=== PATIENT | female | born 1965 | race Caucasian/White ===

== ENCOUNTER 2017-01-23 20:35 | Emergency (ER) | payer MEDICARE, MEDICAID ==
[~2017-01-23] VITALS: Ht 170.2 cm; Wt 67.0 kg
[~2017-01-23 20:35] MED LIST: ARIP30TA PO; LORA2TAB99 PO; ZOLP10TA PO
[2017-01-23 20:37] VITALS: BP 124/84
== END 2017-01-23 21:26 | disposition home or self-care (01) ==
LOC: ED 21:01
DX: S06.9X1A Unspecified intracranial injury with loss of consciousness of 30 minutes or less, initial encounter (principal); Z88.8 Allergy status to other drugs, medicaments and biological substances; W19.XXXA Unspecified fall, initial encounter; Y93.89 Activity, other specified; Y99.8 Other external cause status; Y92.830 Public park as the place of occurrence of the external cause
CPT/HCPCS: 99282

== ENCOUNTER 2018-06-09 18:27 | Inpatient (IN) | payer MEDICAID, MEDICARE ==
[~2018-06-09] VITALS: Ht 170.2 cm; Wt 66.2 kg
[~2018-06-09 18:27] MED LIST changes: -ARIP30TA PO; +ARIP30TA4 PO
[2018-06-09] MEDS ORDERED: ZIPRASIDONE 20 MG INJ IM ONE ×2 (18:29→19:00)
[2018-06-09 18:50] LABS: MEAN CORPUSCULAR HEMOGLOBIN 32.2 pg (27.0-34.8); MEAN CORPUSCULAR HGB CONC 34.1 g/dL (32.4-35.8); MEAN CORPUSCULAR VOLUME 94.3 fL (80-100); MEAN PLATELET VOLUME 8.2 fL (7.4-10.4); PLATELET COUNT 435 x10^3/uL (130-400); RED BLOOD COUNT 4.03 x10^6/uL (3.82-5.3); RED CELL DISTRIBUTION WIDTH 12.6 % (9.6-15.2)
[2018-06-09 18:59] LABS: ALANINE AMINOTRANSFERASE 29 U/L (12-78); ANION GAP 12 mmol/L (5-15); CHLORIDE 109 mmol/L (98-107); CREATININE 0.96 mg/dL (0.55-1.02); SALICYLATE LEVEL 4.4 mg/dL (2.8-20.0)
[2018-06-09 19:04] LABS: ALKALINE PHOSPHATASE 77 U/L (45-117); BILIRUBIN,TOTAL 0.8 mg/dL (0.2-1.0); TOTAL PROTEIN 7.9 g/dL (6.4-8.2)
[2018-06-09 19:09] LABS: BASOPHILS # (AUTO) 0.05 x10^3/uL (0-0.1); BASOPHILS % (AUTO) 0 % (0-1); EOSINOPHILS # (AUTO) 0.04 x10^3/uL (0-0.4); EOSINOPHILS % (AUTO) 0 % (1-7); LYMPHOCYTES # (AUTO) 2.33 x10^3/uL (1-3.4); LYMPHOCYTES % (AUTO) 12 % (22-44); MD SCAN; MONOCYTES # (AUTO) 1.65 x10^3/uL (0.2-0.8); MONOCYTES % (AUTO) 9 % (2-9); NEUTROPHILS % (AUTO) 79 % (42-75)
[2018-06-09 19:10] LABS: ACETAMINOPHEN < 2 mcg/mL (10-30)
[2018-06-09] MEDS ORDERED: SODIUM CHLORIDE 0.9% 1,000ML IVBOLUS ONE (19:30)
[2018-06-09] MEDS ORDERED: SODIUM CHLORIDE FLUSH 10ML SYR IVF ONE (19:30)
[2018-06-09] MEDS ORDERED: SODIUM CHLORIDE 0.9%, 500ML IVBOLUS ONE (20:00)
[2018-06-09 20:13] LABS: AMPHETAMINE SCREEN, URINE Positive (Negative); BARBITURATE SCREEN, URINE Negative (Negative); BENZODIAZEPINE SCREEN, URINE Negative (Negative); CANNABINOID SCREEN, URINE Positive (Negative); COCAINE SCREEN, URINE Negative (Negative); METHADONE SCREEN, URINE Negative (Negative); OPIATE SCREEN, URINE Negative (Negative)
[2018-06-09 20:20] LABS: MICROSCOPIC INDICATED
[2018-06-09 20:23] LABS: CULTURE INDICATED? YES
[2018-06-09] MEDS ORDERED: ALBUTEROL SULFATE 2.5 MG/3 ML NPPB ONE (21:30)
[2018-06-09] MEDS ORDERED: CEFTRIAXONE PMX 1GM/50ML 50 ML IV ONE (21:30)
[2018-06-09] MEDS ORDERED: CEFTRIAXONE PMX 1GM/50ML 50 ML ONE (21:35)
[2018-06-09] MEDS ORDERED: ALBUTEROL/IPRATROPIUM 2.5MG/0.5MG, 3 ML ONE (21:38)
[2018-06-09] MEDS ORDERED: BISACODYL 10 MG SUPP PR PRN (22:30)
[2018-06-09] MEDS ORDERED: ONDANSETRON 2MG/ML, 2ML IVPush PRN (22:30)
[2018-06-09] MEDS: HEPARIN 5,000 UNITS/ML, 1ML SQ SCH (22:30)
[2018-06-09 23:57] VITALS: BP 102/68
[2018-06-10] MEDS: NS + 20MEQ KCL 1,000 ML IV SCH ×2 (00:12→14:53)
[2018-06-10] MEDS ORDERED: LORazepam 1MG TABLET PO ONE (02:30)
[2018-06-10] MEDS ORDERED: HALOPERIDOL 5 MG/ML ONE (02:36)
[2018-06-10] MEDS: HALOPERIDOL 5 MG/ML IM PRN (02:44)
[2018-06-10 05:16] LABS: BASOPHILS # (AUTO) 0.06 x10^3/uL (0-0.1); BASOPHILS % (AUTO) 0 % (0-1); EOSINOPHILS # (AUTO) 0.16 x10^3/uL (0-0.4); EOSINOPHILS % (AUTO) 1 % (1-7); LYMPHOCYTES # (AUTO) 2.67 x10^3/uL (1-3.4); LYMPHOCYTES % (AUTO) 19 % (22-44); MD NO; MEAN CORPUSCULAR HEMOGLOBIN 32.3 pg (27.0-34.8); MEAN CORPUSCULAR HGB CONC 34.3 g/dL (32.4-35.8); MEAN CORPUSCULAR VOLUME 94.2 fL (80-100); MEAN PLATELET VOLUME 8.2 fL (7.4-10.4); MONOCYTES # (AUTO) 1.33 x10^3/uL (0.2-0.8); MONOCYTES % (AUTO) 9 % (2-9); NEUTROPHILS # (AUTO) 9.97 x10^3/uL (1.8-6.8); NEUTROPHILS % (AUTO) 70 % (42-75); PLATELET COUNT 370 x10^3/uL (130-400); RED CELL DISTRIBUTION WIDTH 12.4 % (9.6-15.2)
[2018-06-10 05:17] LABS: ALANINE AMINOTRANSFERASE 30 U/L (12-78); ALBUMIN 3.2 g/dL (3.4-5.0); ANION GAP 10 mmol/L (5-15); CALCIUM 8.5 mg/dL (8.5-10.1); CHLORIDE 111 mmol/L (98-107); CREATININE 0.75 mg/dL (0.55-1.02)
[2018-06-10 05:19] LABS: ALKALINE PHOSPHATASE 67 U/L (45-117); BILIRUBIN,TOTAL 0.6 mg/dL (0.2-1.0); TOTAL PROTEIN 6.5 g/dL (6.4-8.2)
[2018-06-10] MEDS: HEPARIN 5,000 UNITS/ML, 1ML SQ SCH ×3 (06:19→21:01)
[2018-06-10 06:27] VITALS: BP 103/64
[2018-06-10] MEDS ORDERED: ZIPRASIDONE 20 MG INJ IM PRN (08:00)
[2018-06-10 08:48] VITALS: BP 108/72
[2018-06-10] MEDS: SENNA/DOCUSATE TABLET PO SCH (09:00)
[2018-06-10] MEDS ORDERED: POTASSIUM CHLORIDE 20 MEQ TAB.ER.PRT PO ONE (10:30)
[2018-06-10 13:31] VITALS: BP 108/70
[2018-06-10 19:34] VITALS: BP 97/62
[2018-06-10] MEDS ORDERED: CEFTRIAXONE 1,000 MG in SODIUM CHLORIDE 0.9% 50 ML IV SCH (22:00)
[2018-06-11] MEDS: NS + 20MEQ KCL 1,000 ML IV SCH ×2 (01:49→10:12)
[2018-06-11 02:14] VITALS: BP 101/68
[2018-06-11] MEDS: ZIPRASIDONE 20 MG INJ IM PRN ×3 (04:12→23:18)
[2018-06-11] MEDS: HEPARIN 5,000 UNITS/ML, 1ML SQ SCH ×3 (06:30→20:12)
[2018-06-11 06:57] VITALS: BP 108/70
[2018-06-11] MEDS: SENNA/DOCUSATE TABLET PO SCH (08:41)
[2018-06-11 09:05] LABS: MEAN CORPUSCULAR HEMOGLOBIN 31.6 pg (27.0-34.8); MEAN CORPUSCULAR HGB CONC 33.8 g/dL (32.4-35.8); MEAN CORPUSCULAR VOLUME 93.6 fL (80-100); MEAN PLATELET VOLUME 8.2 fL (7.4-10.4); PLATELET COUNT 377 x10^3/uL (130-400); RED BLOOD COUNT 3.56 x10^6/uL (3.82-5.3); RED CELL DISTRIBUTION WIDTH 12.3 % (9.6-15.2)
[2018-06-11 09:13] LABS: ALBUMIN 3.3 g/dL (3.4-5.0); ANION GAP 5 mmol/L (5-15); CALCIUM 8.3 mg/dL (8.5-10.1); CHLORIDE 114 mmol/L (98-107); CREATININE 0.62 mg/dL (0.55-1.02)
[2018-06-11 09:46] LABS: BASOPHILS # (AUTO) 0.03 x10^3/uL (0-0.1); BASOPHILS % (AUTO) 0 % (0-1); EOSINOPHILS % (AUTO) 1 % (1-7); LYMPHOCYTES # (AUTO) 1.98 x10^3/uL (1-3.4); LYMPHOCYTES % (AUTO) 23 % (22-44); MD SCAN; MONOCYTES % (AUTO) 8 % (2-9); NEUTROPHILS # (AUTO) 5.84 x10^3/uL (1.8-6.8); NEUTROPHILS % (AUTO) 68 % (42-75)
[2018-06-11 13:04] VITALS: BP 107/70
[2018-06-11 20:00] VITALS: BP 129/80
[2018-06-11] MEDS: DIPHENHYDRAMINE 50 MG CAPSULE PO PRN (20:12)
[2018-06-11] MEDS: ACETAMINOPHEN 325 MG TABLET PO PRN (20:25)
[2018-06-12] MEDS: ACETAMINOPHEN 325 MG TABLET PO PRN ×3 (04:21→20:47)
[2018-06-12] MEDS: HEPARIN 5,000 UNITS/ML, 1ML SQ SCH ×3 (04:22→22:29)
[2018-06-12 04:26] VITALS: BP 129/83
[2018-06-12 08:00] VITALS: BP 109/77
[2018-06-12] MEDS: SENNA/DOCUSATE TABLET PO SCH (09:13)
[2018-06-12 12:30] VITALS: BP 131/77
[2018-06-12] MEDS: ZIPRASIDONE 20 MG INJ IM PRN ×2 (13:57→22:29)
[2018-06-12 18:44] VITALS: BP 115/79
[2018-06-13 02:19] VITALS: BP 118/77
[2018-06-13] MEDS: ACETAMINOPHEN 325 MG TABLET PO PRN ×3 (03:20→19:53)
[2018-06-13] MEDS: DIPHENHYDRAMINE 50 MG CAPSULE PO PRN ×2 (03:20→19:53)
[2018-06-13] MEDS: HEPARIN 5,000 UNITS/ML, 1ML SQ SCH ×3 (06:23→21:14)
[2018-06-13 06:43] VITALS: BP 125/82
[2018-06-13] MEDS: SENNA/DOCUSATE TABLET PO SCH (08:30)
[2018-06-13] MEDS: ZIPRASIDONE 20 MG INJ IM PRN ×2 (09:03→21:13)
[2018-06-13 12:43] VITALS: BP 120/86
[2018-06-13] MEDS ORDERED: POLYETHYLENE GLYCOL 17 GM PACKET PO PRN (19:00)
[2018-06-13] MEDS ORDERED: BISACODYL 10 MG SUPP PR PRN (19:00)
[2018-06-13] MEDS ORDERED: DOCUSATE 100 MG CAPSULE PO PRN (19:00)
[2018-06-13] MEDS ORDERED: ACETAMINOPHEN 325 MG TABLET PO PRN (19:00)
[2018-06-13 19:12] VITALS: BP 128/82
[2018-06-14 00:47] VITALS: BP 127/85
[2018-06-14] MEDS: ACETAMINOPHEN 325 MG TABLET PO PRN ×4 (02:20→22:47)
[2018-06-14] MEDS: HEPARIN 5,000 UNITS/ML, 1ML SQ SCH ×3 (05:17→20:38)
[2018-06-14 06:44] VITALS: BP 134/87
[2018-06-14] MEDS ORDERED: HEMORRHOIDAL SUPP.RECT PR PRN (08:30)
[2018-06-14] MEDS: SENNA/DOCUSATE TABLET PO SCH ×2 (09:00)
[2018-06-14] MEDS: ZIPRASIDONE 20 MG INJ IM PRN (12:14)
[2018-06-14 13:42] VITALS: BP 116/77
[2018-06-14] MEDS: DIPHENHYDRAMINE 50 MG CAPSULE PO PRN (16:36)
[2018-06-14 19:55] VITALS: BP 134/84
[2018-06-15 02:44] VITALS: BP 127/86
[2018-06-15] MEDS: ACETAMINOPHEN 325 MG TABLET PO PRN ×3 (03:18→19:33)
[2018-06-15] MEDS: HEPARIN 5,000 UNITS/ML, 1ML SQ SCH ×3 (04:39→21:08)
[2018-06-15] MEDS: ZIPRASIDONE 20 MG INJ IM PRN ×2 (06:18→21:08)
[2018-06-15 07:07] VITALS: BP 129/86
[2018-06-15] MEDS: SENNA/DOCUSATE TABLET PO SCH ×2 (09:00)
[2018-06-15] MEDS: POLYETHYLENE GLYCOL 17 GM PACKET PO PRN (10:20)
[2018-06-15] MEDS: HALOPERIDOL 5 MG/ML IM PRN ×2 (10:21→19:33)
[2018-06-15 12:28] VITALS: BP 115/81
[2018-06-15 19:43] VITALS: BP 112/64
[2018-06-16 01:40] VITALS: BP 112/77
[2018-06-16] MEDS: ACETAMINOPHEN 325 MG TABLET PO PRN ×2 (02:35→08:36)
[2018-06-16] MEDS: HEPARIN 5,000 UNITS/ML, 1ML SQ SCH ×2 (05:05→13:00)
[2018-06-16] MEDS: ZIPRASIDONE 20 MG INJ IM PRN (05:05)
[2018-06-16 08:31] VITALS: BP 99/51
[2018-06-16] MEDS: SENNA/DOCUSATE TABLET PO SCH ×2 (08:36)
[2018-06-16] MEDS: POLYETHYLENE GLYCOL 17 GM PACKET PO PRN (11:14)
[2018-06-16 12:47] VITALS: BP 112/75
== END 2018-06-16 16:02 | DRG 871 ==
LOC: ED 21:25 → EDIP 21:36 → 4NOR 22:25
PROVIDERS: ADMIT Family Medicine; ATTEND Family Medicine
DX: A41.9 Sepsis, unspecified organism (principal); G93.41 Metabolic encephalopathy; M62.82 Rhabdomyolysis; N39.0 Urinary tract infection, site not specified; E86.0 Dehydration; E87.6 Hypokalemia; E87.5 Hyperkalemia; F15.90 Other stimulant use, unspecified, uncomplicated; F17.200 Nicotine dependence, unspecified, uncomplicated; F22 Delusional disorders; F90.9 Attention-deficit hyperactivity disorder, unspecified type; Z88.8 Allergy status to other drugs, medicaments and biological substances
CPT/HCPCS: 36415; 99285; J7613; 71045; 80048; 80053; 80307; 80329; 81001; 82040; 82140; 82550; 82607; 82746; 83605; 84439; 84443; 84703; 85025; 86592; 87040; 87086; 93005; 96361; 96372; 96374; G0378; J0696; J1644; J3480; J3486; 92523-GN; G0480; J1630; J7030